=== PATIENT | female | born 1970 | race African-American/Black ===

== ENCOUNTER 2020-07-07 09:17 | Emergency (ER) | payer BC, OTHER | END 2020-07-07 10:09 | disposition home or self-care (01) | LOC: BURERS 09:17 | DX: S61.212A Laceration without foreign body of right middle finger without damage to nail, initial encounter (principal); I10 Essential (primary) hypertension; W19.XXXA Unspecified fall, initial encounter ==

== ENCOUNTER 2021-10-18 07:55 | Outpatient (CLI) | payer BC | END 2021-10-18 07:56 | disposition home or self-care (01) | LOC: BURRAD 07:55 | PROVIDERS: ATTEND Nurse Practitioner Family | DX: M25.511 Pain in right shoulder (principal) ==